=== PATIENT | male | born 1990 | race Two or more races ===

== ENCOUNTER 2022-03-13 19:15 | Emergency (ER) | payer MEDICAID ==
[~2022-03-13] VITALS: Ht 188 cm; Wt 159.1 kg
[2022-03-13 19:31] LABS: GLUCOMETER DEV NAME(LOC) ERT.5; GLUCOSE,POINT OF CARE 550 MG/DL (70-110)
[2022-03-13] MEDS ORDERED: METF-1211 PO (19:41)
[2022-03-13] MEDS ORDERED: GLIP5TAB12 PO (19:41)
[2022-03-13] MEDS ORDERED: SODIUM CHLORIDE 0.9% 2,000 ML IV ONE (20:45)
[2022-03-13] MEDS ORDERED: INSULIN REGULAR, HUMAN 100 UNITS/ML IVP ONE (20:45)
[2022-03-13 21:32] LABS: BASOPHILS % (AUTO) 0.7 % (0.0-2.0); EOSINOPHILS % (AUTO) 1.3 % (1.0-6.0); HEMOGLOBIN 15.8 g/dL (13.5-17.5); LYMPHOCYTES % (AUTO) 26.5 % (22.0-44.0); MEAN CORPUSCULAR HEMOGLOBIN 27.8 pg (26.0-34.0); MEAN CORPUSCULAR VOLUME 84 fL (80-100); MONOCYTES # (AUTO) 0.7 K/uL (0.1-1.0); MONOCYTES % (AUTO) 9.8 % (2.0-9.0); NEUTROPHILS # (AUTO) 4.7 K/uL (1.8-7.7); NEUTROPHILS % (AUTO) 61.7 % (40.0-70.0); PLATELET COUNT (AUTO) 235 K/uL (150-450)
[2022-03-13 21:43] LABS: ACETONE,BLOOD NEGATIVE (NEGATIVE)
[2022-03-13 22:11] LABS: ALBUMIN 3.5 g/dL (3.4-5.0); ALKALINE PHOSPHATASE 118 U/L (46-116); ANION GAP 9 mmol/L (8-16); BILIRUBIN,TOTAL 0.3 mg/dL (0.1-1.0); CALCIUM, TOTAL 9.6 mg/dL (8.8-10.5); CARBON DIOXIDE 23 mmol/L (22-29); CHLORIDE 97 mmol/L (98-107); CREATININE 0.97 mg/dL (0.60-1.30); GLOMERULAR FILTR. RATE CALC > 60 mL/min (>60); POTASSIUM 4.1 mmol/L (3.5-5.1); SODIUM SERUM 129 mmol/L (136-145); TOTAL PROTEIN, SERUM 7.4 g/dL (6.4-8.2); UREA NITROGEN, BLOOD 21 mg/dL (7-18)
[2022-03-13 22:12] LABS: GLUCOSE,RANDOM 472 mg/dL (70-110)
[2022-03-13 22:24] LABS: ALANINE AMINOTRANSFERASE 143 U/L (12-78); ASPARTATE AMINOTRANSFERASE 66 U/L (15-37)
[2022-03-13 22:30] VITALS: BP 141/89
[2022-03-13] MEDS ORDERED: MICO14CR6 TP (23:00)
[2022-03-13] MEDS ORDERED: FLUC150T61 PO (23:00)
[2022-03-13 23:31] LABS: GLUCOMETER DEV NAME(LOC) ERT.5; GLUCOSE,POINT OF CARE 313 MG/DL (70-110)
== END 2022-03-13 23:20 | disposition home or self-care (01) ==
LOC: EMS 19:15
DX: E11.65 Type 2 diabetes mellitus with hyperglycemia (principal); Z91.119 Patient's noncompliance with dietary regimen due to unspecified reason; N47.7 Other inflammatory diseases of prepuce; E66.01 Morbid (severe) obesity due to excess calories
CPT/HCPCS: 99283; 96374; 96361; 80053; 82009; 82962; 85025; 36415; J7030; J1815

== ENCOUNTER 2022-04-05 22:22 | Emergency (ER) | payer MEDICAID ==
[~2022-04-05] VITALS: Ht 188 cm; Wt 159.0 kg
[~2022-04-05 22:22] MED LIST: FLUC150T61 PO; GLIP5TAB12 PO; METF-1211 PO; MICO14CR6 TP
[2022-04-05 22:39] VITALS: BP 119/92
[2022-04-05 22:51] LABS: GLUCOMETER DEV NAME(LOC) ERT.5; GLUCOSE,POINT OF CARE 297 MG/DL (70-110)
[2022-04-05] MEDS ORDERED: FLUC150T61 PO (23:42)
[2022-04-05] MEDS ORDERED: MICO14CR6 TP (23:42)
== END 2022-04-06 00:03 | disposition home or self-care (01) ==
LOC: EMS 22:23
DX: B37.42 Candidal balanitis (principal); E11.65 Type 2 diabetes mellitus with hyperglycemia; E66.01 Morbid (severe) obesity due to excess calories
CPT/HCPCS: 82962; 99282